=== PATIENT | male | born 2005 | race Caucasian/White ===

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

== ENCOUNTER 2025-02-02 09:13 | Emergency (ER) | payer BC, SELFPAY ==
[2025-02-02 09:25] VITALS: BP 129/58; PULSE 75; RESP 18; TEMP 36.8; O2SAT 100
--- OUTSIDE RECORDS SUMMARY | 2025-02-02 09:38 | XMS_ITS | Clinical Summary ---
Author Organization [facility] Address [address] [place] [address] Care Team Providers Care Agency Owner Name Role Phone Zelda Zamarripa MD Primary Care Provider Allergies Active Allergy Reactions Criticality Noted Date Comments Pollen Extract Rash Medium 08/17/2019 DELIA Gourd Medications ondansetron (ZOFRAN) 4 MG tabletIndication s:Nausea and vomiting, unspecified vomiting type Take 1 tablet (4 mg total) by mouth every 8 (eight) hours as needed. 20 tablet 04/13/2023 Active omeprazole (PRILOSEC) 40 MG capsuleIndicatio ns:Nausea and vomiting, unspecified vomiting type Take 1 capsule (40 mg total) by mouth daily. 30 capsule 04/13/2023 Active Active Problems No known active problems Immunizations Immunization Administration Dates Next Due Meningococcal (Menactra) 10/07/2021,10/10/2015 Tdap (Generic) 10/10/2015 Social History Tobacco Use Types Packs/Day Years Used Date Smoking Tobacco: Never Passive Smoke Exposure: Never Smokeless Tobacco: Never Tobacco Cessation:Counseling Given: No Alcohol Use Standard Drinks/Week Comments Not Currently 0 (1 standard drink = 0.6 oz pur e alcohol) PHQ-2 Answer Date Recorded Patient Health Questionnaire-2 Score 0 04/13/2023 Sex and Gender Information Value Date Recorded Sex Assigned at Not on file Legal Sex Male 7:01 PM CDT Gender Identity Not on file Sexual Orientation Not on file Last Filed Vital Signs Vital Sign Reading Time Taken Comments Blood Pressure 119/72 04/13/2023 1: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 Pulse 81 04/13/2023 1: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 Temperature 36.8 C (98.3 F) 04/13/2023 1: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 Respiratory Rate 20 04/13/2023 1: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 Oxygen Saturation 98% 04/13/2023 1: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 Inhaled Oxygen Concentration - - Weight 104.8 kg (231 lb) 04/13/2023 1: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 Height 165.1 cm (5' 5) 04/13/2023 1: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 Body Mass Index 38.44 04/13/2023 1: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 Plan of Treatment Health Maintenance Due Date Last Done Comments Annual Physical 10/01/2007 HPV Vaccines (1 - Male 3-dos e series) 10/01/2019 Meningococcal B Vaccine (1 o f 2 - Standard) 2020 Hepatitis C 2022 Hepatitis B Vaccines (1 of 3 - 19+ 3-dose series) 10/01/2023 PHQ-2 (Physician Brent) 05/04/2024 04/13/2023 COVID-19 Vaccine (1 - 2023-2 5 season) 2025 DTaP, Tdap and Td Vaccines ( 2 - Td or Tdap) 10/09/2025 10/10/2015 Meningococcal Vaccine Completed 10/07/2021 , 10/10/2015 Pneumococcal Vaccine: Pediatrics (0 to 5 Years) and At-Risk Patients (6 to 49 Years) Aged Out No longer eligible b ased on patient's age to complete this topic RSV Immunizations Under 20 Months Aged Out No longer eligible b ased on patient's age to complete this topic Insurance Care Teams Agency Owner Relationship Specialty Start Date End Date Zelda Zamarripa MD [address] [place] [address] PCP - General PEDIATRICS 12/05/18
[2025-02-02 09:49] LABS: EDCOVIDSCREEN Negative (Negative); EDINFLUASCREEN Negative (Negative); EDINFLUBSCREEN Negative (Negative); EDSTREPNEGPOS1 Negative (Negative)
--- NOTE | 2025-02-02 09:52 | ED_ITS ---
HPI - URI/Sore Throat General Chief Complaint: Upper Respiratory Infection Stated Complaint: fever Time Seen by Provider: 02/02/25 09:40 Source: patient and RN notes reviewed Mode of arrival: ambulatory Limitations: no limitations History of Present Illness HPI Narrative: Patient presents today with complaints of a fever, lower abdominal discomfort, nausea, vomiting, diarrhea, headache. Fever started 3 days ago and was slightly over 100, this has since resolved. Lower abdominal discomfort is intermittent. Patient vomited for the 1st 2 days of illness, but none for the last couple of days. He had diarrhea 3-4 times per day without blood or mucus. His last episode of diarrhea was last night. He does continue to have some intermittent mild nausea, but was able to eat steak last night and is drinking fluids well. He has an intermittent headache that he has been taking [id number] medicine for and he is currently pain-free. Related Data Allergies Allergy/AdvReac Type Severity Reaction Status Date / Time No Known Allergies Allergy Verified 02/02/25 09:26 [facility] Comments At time of signature, I have reviewed and agree with nursing past medical, surgical, social and family history unless otherwise noted. Please see nursing chart for further information. There is no relevant family history pertinent to the presenting complaint Exam Narrative: GENERAL: Well-appearing, well-nourished, and in no acute distress. HEAD: Normocephalic, atraumatic. EYES: EOMI. No redness or drainage. Conjunctivae normal. ENT: Mucous membranes pink and moist. Nares clear. No rhinorrhea. TMs normal bilaterally. Throat normal. Uvula midline. NECK: Normal AROM. Supple. No lymphadenopathy. CHEST: No respiratory distress. Clear to auscultation. HEART: Regular rate and rhythm. No murmur appreciated. ABDOMEN: Soft, nontender, nondistended, normal active bowel sounds. EXTREMITIES: Normal range of motion. No edema. SKIN: Warm, dry, no rash. Capillary refill normal. Normal skin turgor. NEURO: No focal deficits. Alert and oriented x3. Gait steady. PSYCH: Normal affect. No signs of depression or anxiety. Course Course Level of Care: Express Care Visit Vital Signs Vital signs: Vital Signs Temperature 98.2 F 02/02/25 09:25 Pulse Rate 75 02/02/25 09:25 Respiratory Rate 18 02/02/25 09:25 Blood Pressure 129/58 L 02/02/25 09:25 Pulse Oximetry 100 02/02/25 09:25 Oxygen Delivery Room Air 02/02/25 09:25 Temperature 98.2 F 02/02/25 09:25 Pulse Rate 75 02/02/25 09:25 Respiratory Rate 18 02/02/25 09:25 Blood Pressure 129/58 L 02/02/25 09:25 Pulse Oximetry 100 02/02/25 09:25 Oxygen Delivery Room Air 02/02/25 09:25 Reviewed MDM - URI/Sore Throat MDM Narrative Medical decision making narrative: Patient presents today with complaints of a fever, lower abdominal discomfort, nausea, vomiting, diarrhea, headache. Fever started 3 days ago and was slightly over 100, this has since resolved. Lower abdominal discomfort is intermittent. Patient vomited for the 1st 2 days of illness, but none for the last couple of days. He had diarrhea 3-4 times per day without blood or mucus. His last episode of diarrhea was last night. He does continue to have some intermittent mild nausea, but was able to eat steak last night and is drinking fluids well. He has an intermittent headache that he has been taking [id number]-[id number] medicine for and he is currently pain-free. Upon exam, patient's mucous memb ranes were pink and moist, skin turgor normal, abdominal exam normal. Symptoms likely due to viral illness, which seems to be improving. Patient is able to eat and drink well. COVID, influenza, and rapid strep negative. Will send patient some Zofran to pharmacy to help with his intermittent nausea. Vital signs stable. Anticipatory guidance and ED precautions given. Differential Diagnosis Differential diagnosis: Likely viral infection and other (Gastroenteritis, diverticulitis, appendicitis, cholecystitis, influenza, COVID, strep throat) Lab Data Attestation: I reviewed the patient's lab results. Labs: Lab Results 02/02/25 Range/Units 09:47 POC Influenza A Ag Negative (Negative) POC Influenza B Ag Negative (Negative) POC SARS CoV-2 Ag Negative (Negative) POC Grp A Strep Screen Negative (Negative) Critical Care Time Critical Care Time Critical Care Time: No Discharge Plan Discharge Clinical Impression: Viral syndrome Patient Disposition: Home Condition: Stable Instructions: Acute Nausea and Vomiting (DC), Acute Diarrhea (ED) Additional Instructions: Your COVID-19, influenza, and strep swabs are negative. Your symptoms are likely due to a viral illness, which is not treated with antibiotics. Continue to eat and drink slowly. Take the Zofran as needed for nausea or vomiting. As discussed, if you develop a new fever greater than 100.3, severe abdominal pain, or vomiting that will not stop medication, please go to the ER immediately for further evaluation. Patient Language: Croatian Prescriptions: New ondansetron 4 mg tablet,disintegrating 4 mg PO TID PRN (Reason: nausea and vomiting) Qty: 10 0RF Follow-up/Referrals: UNKNOWN,DOCTOR [Primary Care Provider] Time of Disposition: 10:04
== END 2025-02-02 10:07 | disposition home or self-care (01) ==
PROVIDERS: Emergency Provider Nurse Practitioner
DX: B34.9 Viral infection, unspecified (principal); Z20.822 Contact with and (suspected) exposure to COVID-19
CPT/HCPCS: 87426; 87804; 87880; 99213; G0463